=== PATIENT | female | born 1935 | race Caucasian/White ===

== ENCOUNTER 2017-07-19 09:41 | Outpatient (CLI) | payer MEDICARE, BC ==
--- NOTE | 2017-07-19 12:05 | MRI ---
BRAIN MRI WITH AND WITHOUT CONTRAST: Indication: Altered sensorium. FINDINGS: Ventricular system is age appropriate in size with mild degree of parenchymal volume loss. Mild to mo derate chronic microvascular ischemic disease is present. There is no acute territorial infarction, i ntracranial mass effect or midline shift. No intracranial hemorrhagic susceptibility. The imaged para nasal sinuses are clear. Absence of [place] right intraocular lens. Skull base flow voids are patent. Evaluation with post contrast imaging reveals no pathologic intraaxial enhancement. 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 IMPRESSION: 1. No acute intracranial abnormality. 2. Mild to moderate chronic microvascular ischemic disease. POS: [facility]
[2017-07-19] MEDS ORDERED: Gadobenate Dimeglumine 529 MG/1 ML (20ML VIAL) ONE (14:02)
== END 2017-07-19 09:42 | disposition home or self-care (01) ==
LOC: EEG 09:41
PROVIDERS: ATTEND Psychiatry & Neurology Neurology
DX: R40.4 Transient alteration of awareness (principal); G93.9 Disorder of brain, unspecified
CPT/HCPCS: 70553; 95816; A9579

== ENCOUNTER 2020-12-22 16:59 | Observation (INO) | payer MEDICARE, BC ==
[~2020-12-22 16:59] MED LIST: Iopamidol-370 76% 500 ML 1 ML ONE
[2020-12-22] MEDS ORDERED: Fentanyl 100 MCG/2 ML VIAL ONE (17:49)
[2020-12-22] MEDS ORDERED: Ondansetron PF 4 MG/2 ML Vial IVP PRN (18:38)
[2020-12-22] MEDS ORDERED: hydrALAZINE 20 MG/ML VIAL SLOW IVP PRN (18:38)
[2020-12-22] MEDS ORDERED: Ibuprofen 200 MG TAB PO PRN (18:44)
[2020-12-22 21:58] VITALS: BMI 18.1
[2020-12-22] MEDS: Acetaminophen 325 MG TAB PO SCH (23:58)
[2020-12-23] MEDS ORDERED: HYDROcodone/Acetaminophen 10/325 mg Tablet PO PRN (00:55)
[2020-12-23] MEDS ORDERED: Amlodipine 5 MG TAB PO SCH (01:15)
[2020-12-23] MEDS: Acetaminophen 325 MG TAB PO SCH (05:26)
[2020-12-23] MEDS ORDERED: Levothyroxine Sodium 75 MCG TAB PO SCH (06:00)
[2020-12-23 06:15] LABS: #Lymphocytes 1.1 thou/uL (1.20-3.40); #Monocytes 0.9 thou/uL (0.11-0.59); #Neutrophils 12.1 thou/uL (1.40-6.50); %Basophils 0.3 % (0.0-1.0); %Lymphocytes 7.9 % (21.0-51.0); %Monocytes 6.3 % (0.0-10.0); %Neutrophils 85.6 % (42.0-75.0); Hemoglobin 12.5 g/dL (12.0-16.0); Mean Corpuscular HGB CONC 34.5 g/dL (32.0-36.0); Mean Corpuscular Volume 95.5 fL (78.0-98.0); Mean Platelet Volume 6.7 fL (7.4-10.4); Platelet Count 283 thou/uL (130-400); Red Blood Cell (RBC) Count 3.78 mill/uL (4.20-5.40); White Blood Cell (WBC) Count 14.2 thou/uL (4.8-10.8)
[2020-12-23 06:24] LABS: INR-International Normal Ratio 1.1; PTT 27.8 sec (22.9-36.1); Prothrombin Time 13.8 sec (12.0-14.7)
[2020-12-23 06:36] LABS: Anion Gap 16 mmol/L (10-20); BUN (Urea Nitrogen) 18 mg/dL (9.8-20.1); Calc. Creatinine Clearance 32 mL/min (70-130); Calcium 9.1 mg/dL (7.8-10.44); Carbon Dioxide 22 mmol/L (23-31); Chloride 101 mmol/L (98-107); Glucose 114 mg/dL (83-110); Potassium 3.5 mmol/L (3.5-5.1); Sodium 135 mmol/L (136-145)
[2020-12-23 08:07] VITALS: BP 145/66; TEMP 97.9
[2020-12-23] MEDS ORDERED: TRAMADOL HCL 100 MG PO SCH (09:00)
[2020-12-23] MEDS ORDERED: Aspirin 325 mg Enteric Coated Tablet PO SCH (09:00)
[2020-12-23] MEDS ORDERED: Aspirin 81 mg Enteric Coated Tablet PO SCH (10:30)
[2020-12-23 11:26] LABS: SARS-CoV-2 PCR by NAA Not Detected (NotDetected)
[2020-12-23] MEDS ORDERED: traMADol HCl 50 MG TAB PO SCH (14:00)
== END 2020-12-23 12:44 | disposition home or self-care (01) ==
LOC: ERS 16:59 → T4-B 18:38
PROVIDERS: ADMIT Surgery; ATTEND Surgery
DX: S12.090A Other displaced fracture of first cervical vertebra, initial encounter for closed fracture (principal); I65.02 Occlusion and stenosis of left vertebral artery; G89.11 Acute pain due to trauma; M47.812 Spondylosis without myelopathy or radiculopathy, cervical region; I10 Essential (primary) hypertension; M19.90 Unspecified osteoarthritis, unspecified site; S02.2XXA Fracture of nasal bones, initial encounter for closed fracture; K21.9 Gastro-esophageal reflux disease without esophagitis; E03.9 Hypothyroidism, unspecified; G89.4 Chronic pain syndrome; Z79.899 Other long term (current) drug therapy; Z88.0 Allergy status to penicillin; Z88.8 Allergy status to other drugs, medicaments and biological substances; Z20.822 Contact with and (suspected) exposure to COVID-19; W18.30XA Fall on same level, unspecified, initial encounter; Y92.009 Unspecified place in unspecified non-institutional (private) residence as the place of occurrence of the external cause
CPT/HCPCS: 70486; 70498; 80048; 85025; 85610; 85730; 96374; 96375; 97116; 97139 ×3; 99284; G0378 ×3; U0003; U0005; 36415; G0390; J0360; J3010; Q9967